=== PATIENT | male | born 1965 | race Caucasian/White ===

== ENCOUNTER 2016-11-19 15:53 | Emergency (ER) | payer SELFPAY ==
[2016-11-19 15:53] VITALS: BP 149/100
[2016-11-19] MEDS ORDERED: HYDR-971 PO (16:15)
[2016-11-19] MEDS ORDERED: PENI250T2 PO (16:15)
--- NOTE | 2016-11-19 16:32 | ED.ADGEN ---
Past History Past Medical History: No Pertinent History Past Surgical History: No Surgical History Alcohol Use: Occasionally Drug Use: None Adult General HPI HPI Patient is a 51-year-old male presents emergency department complaining of dental pain. Patient has a crown that has come loose on his left upper jaw. He attempted to go to the dentist today but they informed there were closed it is [facility] [employer] holiday. He will see them instead on Tuesday. Review of Systems Review of Systems Constitutional: Denies fever or chills [] Eyes: Denies change in visual acuity, redness, or eye pain [] HENT: Denies nasal congestion or sore throat [] Respiratory: Denies cough or shortness of breath [] Cardiovascular: No additional information not addressed in HPI [] GI: Denies abdominal pain, nausea, vomiting, bloody stools or diarrhea [] : Denies dysuria or hematuria [] Musculoskeletal: Denies back pain or joint pain [] Integument: Denies rash or skin lesions [] Neurologic: Denies headache, focal weakness or sensory changes [] Endocrine: Denies polyuria or polydipsia [] Allergies Allergies Allergies Coded Allergies Type Severity Reaction Last Updated Verified No Known Drug Allergies 11/19/16 No Physical Exam Physical Exam Constitutional: Well developed, well nourished, no acute distress, non-toxic appearance. [] HENT: Normocephalic, atraumatic, bilateral external ears normal, oropharynx moist, no oral exudates, nose normal. [] Eyes: PERRLA, EOMI, conjunctiva normal, no discharge. [] Neck: Normal range of motion, no tenderness, supple, no stridor. [] Cardiovascular:Heart rate regular rhythm, no murmur [] Lungs & Thorax: Bilateral breath sounds clear to auscultation [] Skin: Warm, dry, no erythema, no rash. [] Neurologic: Alert and oriented X 3, normal motor function, normal sensory function, no focal deficits noted. [] Psychologic: Affect normal, judgement normal, mood normal. [] Current Patient Data Vital Signs Vital Signs Date Time Temp Pulse Resp B/P Pulse Ox O2 Delivery O2 Flow Rate FiO2 11/19/16 15:53 98.0 76 20 96 Room Air EKG EKG [] Radiology/Procedures Radiology/Procedures [] Course & Med Decision Making Course & Med Decision Making Pertinent Labs and Imaging studies reviewed. (See chart for details) Penicillin, [place], follow-up with dentist as scheduled. [] Final Impression Final Impression Dental pain [] Problems: Dragon Disclaimer Dragon Disclaimer This electronic medical record was generated, in whole or in part, using a voice recognition dictation system. AUSTYN EAGLE MD Nov 19, 2016 16:32
== END 2016-11-19 17:00 | disposition home or self-care (01) ==
LOC: ER 15:53
DX: K08.89 Other specified disorders of teeth and supporting structures (principal)
CPT/HCPCS: 99283

== ENCOUNTER → 2017-06-28 | Outpatient (CLI) | payer BC ==
[~2017-06-28] MED LIST: HYDR-971 PO; PENI250T85 PO
--- NOTE | 2017-06-28 12:52 | RAD ---
Chest, 2 views, 06/28/2017: History: Nonproductive cough, head congestion The heart size and pulmonary vascularity are normal. No pulmonary infiltrates are seen. There is no evidence of pleural fluid. Mild spurring is present in the spine. IMPRESSION: No acute cardiopulmonary abnormality is detected.
== END | disposition home or self-care (01) ==
LOC: DXRADRC 10:20
PROVIDERS: ATTEND Nurse Practitioner Family
DX: R05 Cough (principal); R09.89 Other specified symptoms and signs involving the circulatory and respiratory systems; M53.80 Other specified dorsopathies, site unspecified
CPT/HCPCS: 71020

== ENCOUNTER → 2020-08-22 | Outpatient (CLI) | payer OTHER ==
[~2020-08-22] MED LIST changes: +HYDR-3165 PO; -HYDR-971 PO
--- NOTE | 2020-08-22 15:43 | RAD ---
EXAM: Right hand, 3 views. HISTORY: Pain. COMPARISON: None. FINDINGS: 3 views of the right hand are obtained. There is no acute fracture, dislocation or subluxat ion. There is first carpometacarpal joint space narrowing and spurring. IMPRESSION: 1. Mild first carpometacarpal joint osteoarthritis. 2. No acute osseous finding. Electronically signed by: Barbi Ventura MD (08/22/2020 3:41 PM) [facility]
== END ==
LOC: DXRAD 11:26
PROVIDERS: ATTEND Physician Assistant
DX: M19.042 Primary osteoarthritis, left hand (principal); M77.8 Other enthesopathies, not elsewhere classified
CPT/HCPCS: 73130